=== PATIENT | male | born 1935 | race Caucasian/White ===

== ENCOUNTER 2018-02-17 12:58 | Inpatient (IN) | payer MEDICARE ==
[~2018-02-17] VITALS: Ht 180.3 cm; Wt 88.5 kg
[2018-02-17] MEDS ORDERED: ASPIRIN 325 MG TAB PO ONE (13:15)
[2018-02-17 13:37] LABS: BASOPHILS % 0.5 % (0.0-1.0); EOSINOPHILS # (AUTO) 0.3 (0.0-0.4); EOSINOPHILS % 7.8 % (0.0-6.0); HEMATOCRIT 38.5 % (38.2-49.6); HEMOGLOBIN 13.6 g/dL (14.0-18.0); LYMPHOCYTES # (AUTO) 1.1 (1.0-3.2); LYMPHOCYTES % 25.9 % (18.0-39.1); MEAN CORPUSCULAR HEMOGLOBIN 29.8 pg (28-32); MEAN CORPUSCULAR HGB CONC 35.3 g/dL (31-35); MEAN CORPUSCULAR VOLUME 84.2 fL (81-99); MONOCYTES # (AUTO) 0.4 (0.2-0.8); MONOCYTES % 8.6 % (4.4-11.3); NEUTROPHILS # (AUTO) 2.4 (2.1-6.9); PLATELET COUNT 167 x10e3/uL (140-360); RED BLOOD COUNT 4.57 x10e6/uL (4.3-5.7)
[2018-02-17 13:52] LABS: INR 1.03; PROTHROMBIN TIME 12.7 seconds (11.9-14.5)
[2018-02-17 13:53] LABS: PARTIAL THROMBOPLASTIN TIME 29.7 seconds (23.8-35.5)
[2018-02-17 14:01] LABS: ALBUMIN 4.3 g/dL (3.5-5.0); ALBUMIN/GLOBULIN RATIO 1.7 (0.8-2.0); CALCIUM 9.2 mg/dL (8.4-10.2); CREATININE, SERUM 1.17 mg/dL (0.72-1.25)
[2018-02-17 14:07] LABS: CREATINE KINASE MB 2.9 ng/mL (0-5.0)
--- NOTE | 2018-02-17 14:12 | Diagnostic Imaging Report ---
PROCEDURE:CHEST SINGLE (PORTABLE) TECHNIQUE:Portable AP chest INDICATION:Chest pain COMPARISON:None. FINDINGS: The lungs are clear and symmetrically inflated. No pleural effusions. Normal heart size, mediastinal contour, and pulmonary vasculature. Indwelling pacemaker over left hemithorax; leads intact. Intact skeleton. CONCLUSION: No acute abnormality. Dictated by: Carlos Farnsworth M.D. on 02/17/2018 at 14:14 Electronically approved by: Carlos Farnsworth M.D. on 02/17/2018 at 14:14
[2018-02-17] MEDS ORDERED: NITROGLYCERIN 0.4 MG SUBL SL PRN (15:15)
--- OUTSIDE RECORDS SUMMARY | 2018-02-17 15:20 | XMS REPORT | Clinical Summary ---
Author Author [facility] Address Unknown Phone Unavailable Care Team Providers Care Pipe Stem Sawyer Name Role Phone PCP Unavailable Allergies Not on File Current Medications Not on file Active Problems Not on file Encounters Date Type Specialty Care Team Description 04/03/2017 Telephone Transplant Paramjit Hernandez RN Kidney Transplant Donor Pre-evaluation after 02/16/2017 Social History Tobacco Use Types Packs/Day Years Used Date Never Assessed Sex Assigned at Date Recorded Not on file Last Filed Vital Signs Not on file Plan of Treatment Health Maintenance Due Date Last Done Comments INFLUENZA VACCINE 06/22/2018 Results Not on fileafter 02/16/2017
--- OUTSIDE RECORDS SUMMARY | 2018-02-17 15:20 | XMS REPORT ---
Author [facility] Address Unknown Phone Unavailable Care Team Providers Care Full Stack Engineer Name Role Phone RONN LOW Unavailable Unavailable Problems This patient has no known problems. Allergies, Adverse Reactions, Alerts This patient has no known allergies or adverse reactions. Medications This patient has no known medications. Results Test Description Test Time Test Comments Text Results Atomic Results Result Comments CHEST SINGLE (PORTABLE) [place] [address] Patient Name: DARBY MONTOYA MR #: [id number] : 1935 Age/Sex: 82/M Req #: [id number] Adm Physician: Ordered by: RONN LOW MD Report #: [id number] Location: ER Room/Bed: Procedure: [id number] DX/CHEST SINGLE (PORTABLE) Exam Date: 02/17/18 Exam Time: 1350 REPORT STATUS: Signed PROCEDURE: CHEST SINGLE (PORTABLE) TECHNIQUE: Portable AP chest INDICATION: Chest pain COMPARISON: None. FINDINGS: The lungs are clear and symmetrically inflated. No pleural effusions. Normal heart size, mediastinal contour, and pulmonary vasculature. Indwelling pacemaker over left hemithorax ; leads intact. Intact skeleton. CONCLUSION: No acute abnormality. Dictated by: Darby Farnsworth M.D. on 02/17/2018 at 14:14 Electronically approved by: Darby Farnsworth M.D. on 2017 at 14:14 Dictated By: DARBY FARNSWORTH MD 1414 Transcribed By: HARSHIL on 1414 COPY TO: RONN LOW MD
[2018-02-17 16:02] VITALS: BP 146/92
[2018-02-17 16:29] VITALS: BP 146/92
[2018-02-17] MEDS ORDERED: ASPIR 8181 MG PO (17:06)
[2018-02-17 19:58] VITALS: BP 139/83
[2018-02-17 21:58] LABS: CREATINE KINASE MB 2.3 ng/mL (0-5.0)
[2018-02-17] MEDS: METOPROLOL TARTRATE 25 MG TAB PO SCH (23:30)
[2018-02-18] VITALS (11 sets, daily range): BP systolic 101–154; BP diastolic 64–99
[2018-02-18 07:25] LABS: CREATINE KINASE MB 1.8 ng/mL (0-5.0)
[2018-02-18 07:42] LABS: CHOL/HDL RATIO 5.1 (3.9-4.7)
[2018-02-18] MEDS: ASPIRIN 325 MG TAB EC PO SCH (07:54)
[2018-02-18] MEDS: METOPROLOL TARTRATE 25 MG TAB PO SCH ×2 (07:54→20:16)
[2018-02-18] MEDS ORDERED: ATORVASTATIN 20 MG TAB PO SCH (09:00)
[2018-02-18] MEDS: SODIUM CHLORIDE 0.9% 1000ML 1,000 ML IV SCH ×3 (09:50→22:17)
--- NOTE | 2018-02-18 10:02 | Consultation ---
DATE OF CONSULTATION: February 18, 2018 CARDIOLOGY CONSULTATION REFERRING PHYSICIAN: Dr. Manny Ambrocio REASON FOR CONSULTATION: Chest pain. HISTORY OF PRESENT ILLNESS: Carlos is an 82-year-old man, past medical history of dyslipidemia and history of CAD, status post remote stents placed in an outside hospital, who presents with crescendo chest discomfort, worse with exertion and relieved by rest over the last week. Due to symptom worsening, patient decided to proceed to emergency department for further evaluation. His EKG showed sinus rhythm with LVH repolarization abnormality. He has also noted uncontrolled hypertension. On telemetry, he has remained in sinus rhythm as well as sinus bradycardia. Currently, he remains chest pain free. REVIEW OF SYSTEMS: Twelve-system review negative except for as noted above. ALLERGIES: NO KNOWN DRUG ALLERGIES. PHYSICAL EXAMINATION: VITAL SIGNS: Temperature 97.9, heart rate 58, respiratory rate 16, blood pressure 127/75, O2 sat 98%. GENERAL: In no acute distress, alert. NECK: No JVD. CHEST: Clear to auscultation. CARDIOVASCULAR: Regular rate and rhythm. Normal S1 and S2. No S3, no S4. No murmurs or rubs. ABDOMEN: Soft, nontender, nondistended. EXTREMITIES: No edema. CARDIOVASCULAR MEDICATIONS: 1. Metoprolol tartrate 12.5 mg q.12h. 2. Aspirin 325 mg daily. 3. Nitroglycerin p.r.n. STUDIES: White blood cells 4.2, hemoglobin 13.6, platelets 167,000. INR 1. Sodium 142, potassium 4, chloride 109, bicarbonate 26, BUN 17, creatinine 1.17, glucose 78, calcium 9.2. AST 14, ALT 12, alk phos 59. CK 120, then 96, then 80. CK-MB 2.9, then 2.3, then 1.8. Troponin I 0.074, then 0.073, then 0.061. BNP 75. Total protein 6.9, albumin 4.3, triglycerides 129, total cholesterol 225, LDL 155, LDL 44. Chest x-ray, no acute abnormality. ASSESSMENT: 1. Unstable angina. 2. Hypertension, initially uncontrolled, now improved. 3. Dyslipidemia. 4. Coronary artery disease with history of stents. RECOMMENDATIONS: Discussed indications, alternatives, risks, and benefits for coronary angiography and possible coronary intervention. Patient agrees to proceed. Will schedule for labor specialist later today. Continue aspirin and beta florence. Add statin therapy. Further recommendations to follow. Job#: [id number]
[2018-02-18] MEDS ORDERED: LIDOCAINE HCL 2% LOCAL 20 ML VIAL ONE (10:08)
[2018-02-18] MEDS ORDERED: IOPAMIDOL 370 MG/ML 200 ML INFUS..BTL INJ ONE (10:09)
[2018-02-18] MEDS ORDERED: HEPARIN SOD/SOD CHLORIDE 2,000 ML ONE (10:09)
[2018-02-18] MEDS ORDERED: SODIUM CHLORIDE 0.9% 1000ML 1,000 ML ONE (10:23)
[2018-02-18] MEDS ORDERED: FENTANYL CITRATE/PF 100MCG/2 ML INJ ONE (10:23)
[2018-02-18] MEDS ORDERED: MIDAZOLAM HCL 2 MG/2 ML VIAL ONE (10:23)
[2018-02-18] MEDS ORDERED: ATROPINE SULFATE 0.1 MG/ML 10ML SYR ONE (11:57)
--- NOTE | 2018-02-18 13:45 | Operative Report ---
DATE OF PROCEDURE: February 18, 2018 REFERRING PHYSICIAN: Manny Ambrocio MD PROCEDURE INDICATIONS: Unstable angina in patient with history of coronary artery disease and prior coronary stents. PROCEDURES PERFORMED 1. Left heart catheterization. 2. Selective coronary angiography times 2. 3. Left ventriculogram. 4. Right common femoral artery 6-Ethiopian Angio-Seal closure. PROCEDURE COMPLICATIONS: None. ESTIMATED BLOOD LOSS: Less than 15 mL. PROCEDURE SUMMARY: After consent was obtained, the patient was prepped and draped in a sterile fashion. The right femoral site was locally infiltrated with 2% lidocaine. Access was obtained with micropuncture, and a short 6-Ethiopian sheath was placed. All catheters were railed to the proximal ascending aorta over a J wire. A JL4, 6-Ethiopian catheter and a JR4, 6-Ethiopian catheter were used for selective engagement of the left main and the right coronary artery respectively. The JR4 was also used to cross the aortic valve for hemodynamic measurements and LV-gram. The following findings were observed: 1. LV pressure was 129/4 with end diastolic pressure of 20. 2. The aortic pressure was 121/63. 3. LV-gram reveals preserved left ventricular systolic function and normal regional wall motion and left ventricular ejection fraction of 50% to 55%. 4. Left main has an ostial 30% stenosis and mild to moderate calcifications. It gives an LAD and circumflex. 5. The LAD has a stent with 20% in-stent restenosis in the proximal portion. Small caliber septal perforators and diagonals arise from the LAD. The distal LAD has an additional area of 70% in-stent restenosis and is otherwise a good target for bypass. 6. The circumflex is a dominant vessel. It has ostial to proximal diffuse 60% to 70% stenosis and gives a high takeoff of the 1st obtuse marginal that is close in takeoff from the left main. This obtuse marginal has an area of diffuse ostial to proximal disease that is 95% stenosed with BEAU-2 flow distal to the stenosis. This is felt to be the culprit lesion. Additional 2nd obtuse marginal and left posterolateral branch and LPDA arise from the dominant circumflex. Prior to the LPDA and LPLV, there is 30% stenosis of the distal circumflex, which is focal. 7. The right coronary artery is nondominant, small in caliber, less than 1.5 mm in caliber overall, with 90% mid stenosis. CONCLUSION: Severe multivessel coronary artery disease with complex anatomy and bifurcation stenosis of a high takeoff of the 1st obtuse marginal coming off from a diffusely diseased ostial to proximal circumflex and severe in-stent restenosis of the LAD. RECOMMENDATIONS 1. Continue intensive medical therapy for CAD. 2. Surgical consultation for evaluation of aortocoronary bypass candidacy given complex anatomy. 3. IV fluids and bed rest. Job#: [id number]
[2018-02-18] MEDS: ATORVASTATIN 40 MG TAB PO SCH (20:20)
[2018-02-18] MEDS: ENOXAPARIN INJ 80 MG/0.8 ML SYR SC SCH (20:20)
[2018-02-19] VITALS (20 sets, daily range): BP systolic 100–171; BP diastolic 74–113
[2018-02-19] MEDS: ASPIRIN 325 MG TAB EC PO SCH (08:52)
[2018-02-19] MEDS: ENOXAPARIN INJ 80 MG/0.8 ML SYR SC SCH ×2 (08:53→19:45)
--- NOTE | 2018-02-19 09:55 | Progress Note ---
DATE: February 19, 2018 CARDIOLOGY PROGRESS NOTE SUBJECTIVE: Patient continues to endorse some chest pain occasionally across his chest, radiating to his left arm. Denies any shortness of breath, palpitations or cough. OBJECTIVE VITAL SIGNS: Temperature 98.4, pulse 68, respiratory rate 18. Blood pressure 129/92, oxygen saturation 100% on room air. CARDIOVASCULAR MEDICATIONS 1. Atorvastatin 40 mg p.o. at bedtime. 2. Lovenox 80 subcutaneous q.12. 3. Metoprolol 12.5 mg p.o. q.12. 4. Aspirin 325 p.o. daily. 5. Nitro-Dur 0.4 mg sublingual p.r.n. for chest pain. LABS: CK-MB 1.80, troponin 0.061. PHYSICAL EXAMINATION GENERAL: Alert and oriented times 3, resting comfortably in bed, does not appear to be in any acute distress. LUNGS: Clear to auscultation throughout. No wheezing. No rhonchi or crackles. CARDIOVASCULAR: Regular rate and rhythm. S1 and S2. S4 noted. NECK: Supple. No JVD noted. ABDOMEN: Soft, nontender. LOWER EXTREMITIES: There are 2+ pedal pulses. No edema. IMPRESSION 1. Unstable angina. 2. Hypertension. 3. Dyslipidemia. 4. Coronary artery disease with past history of multiple stents and coronary angiogram tomorrow with moderate to severe coronary artery disease. Will be needing coronary artery bypass graft. 5. Permanent pacemaker nonoperational with a battery. RECOMMENDATIONS: Electrophysiology has been consulted. Plan for pacemaker replacement today. The patient will be transferred downtown for coronary artery bypass graft after pacemaker has been replaced. Maintain on telemetry at all times. Left ventricular ejection fraction 50% to 55%. Continue the above-listed cardiac medications. Monitor the patient very closely. We will continue to follow. Dictated by May Christian NP. Job#: [id number]
[2018-02-19] MEDS: METOPROLOL TARTRATE 25 MG TAB PO SCH ×2 (10:54→17:11)
[2018-02-19] MEDS ORDERED: MIDAZOLAM HCL 2 MG/2 ML VIAL ONE ×2 (12:19→13:46)
[2018-02-19] MEDS ORDERED: SODIUM CHLORIDE 0.9% 1000ML 2,000 ML ONE (12:19)
[2018-02-19] MEDS ORDERED: LIDOCAINE HCL 2% LOCAL 20 ML VIAL ONE (12:19)
[2018-02-19] MEDS ORDERED: SODIUM CHLORIDE 0.9% 500ML 500 ML ONE (12:19)
[2018-02-19] MEDS ORDERED: FENTANYL CITRATE/PF 100MCG/2 ML INJ ONE (12:19)
[2018-02-19] MEDS ORDERED: BACITRACIN 50,000 UNIT VIAL ONE (12:20)
[2018-02-19] MEDS ORDERED: VANCOMYCIN 1GM/NS 250 ML 250 ML ONE (12:27)
[2018-02-19] MEDS: SODIUM CHLORIDE 0.9% 1000ML 1,000 ML IV SCH ×3 (18:46→22:00)
[2018-02-19] MEDS: ATORVASTATIN 40 MG TAB PO SCH (19:45)
--- NOTE | 2018-02-19 20:25 | Consultation ---
DATE OF CONSULTATION: February 19, 2018 REFERRING PHYSICIAN: Dr. Story. REASON FOR CONSULTATION: Pacemaker at end of service. HISTORY OF PRESENT ILLNESS: This is an 82-year-old gentleman with history of coronary artery disease, history of intermittent complete heart block, dual-chamber pacemaker in place that had reached end of service, unable to interrogate due to battery is completely . The patient presented with chest pain. He underwent heart catheterization and found to have significant coronary artery disease, awaiting transfer to another facility for coronary bypass surgery. No history of cardiac arrest. REVIEW OF SYSTEMS: CONSTITUTIONAL: Negative. CARDIOVASCULAR: Negative. RESPIRATORY: Negative. GASTROINTESTINAL: Negative. GENITOURINARY: Negative. MUSCULOSKELETAL: Negative. EYES: Negative. ENT: Negative. ALLERGY/IMMUNOLOGY: Negative. PSYCHIATRY: Negative. PAST MEDICAL HISTORY: Hypertension, coronary artery disease, heart block. PAST SURGICAL HISTORY: Pacemaker. FAMILY HISTORY: No premature coronary artery disease. SOCIAL HISTORY: No smoking, alcohol or illicit drugs. PHYSICAL EXAMINATION VITAL SIGNS: Blood pressure 140/60, pulse 60, respirations 20, O2 sat 98%. GENERAL: In no acute distress. HEENT: Moist mucous membranes. No lesions. NECK: No JVD. CARDIOVASCULAR: Regular rhythm. RESPIRATORY: Clear. ABDOMEN: Soft, nontender. MUSCULOSKELETAL: 2+ distal pulses. NEUROLOGICAL: No focal deficit. SKIN: No lesions. PSYCHIATRY: Normal thought process. EKG sinus rhythm, intraventricular conduction delay. IMPRESSION 1. Pacemaker at end of service, unable to interrogate. 2. History of dual-chamber pacemaker in place. 3. History of intermittent complete heart block. 4. Coronary artery disease, awaiting transfer for coronary bypass surgery. RECOMMENDATIONS: Discussed with the patient. At this time, the best course of action is to perform a generator replacement for the pacemaker. This was discussed in detail with benefits and risks. The patient voices understanding and wishes to proceed. Will plan for a pacemaker generator replacement. Thank you for letting us participate in Mr. Ha[facility]'s [facility] care. Job#: [id number]
--- NOTE | 2018-02-19 20:36 | Operative Report ---
DATE OF PROCEDURE: February 19, 2018 PREPROCEDURE DIAGNOSES 1. Pacemaker at end of service. 2. History of intermittent complete heart block. POSTPROCEDURE DIAGNOSES 1. Pacemaker at end of service. 2. History of intermittent complete heart block. ESTIMATED BLOOD LOSS: 5 mL. COMPLICATIONS: None. PROCEDURES PERFORMED 1. Dual-chamber pacemaker generator replacement. 2. Moderate sedation. Moderate conscious sedation was provided under my direct supervision by sedation-trained nurse. Sedation approximate time 20 minutes. Versed and Fentanyl. There were no complications. See sedation form for details. DESCRIPTION OF PROCEDURE: After informed consent was obtained, patient was brought to the electrophysiology laboratory in a fasting, nonsedated state. Area over his chest was prepped and draped in the usual sterile fashion. Moderate sedation and prophylactic antibiotic were given, 1% lidocaine was used as local anesthetic and a 3-cm skin incision was made in the left subclavicular area. Electrocautery, sharp and blunt dissection were used to reach the previous device and this device was freed out of the pocket. Leads were disconnected to the device and tested through the analyzer. The right ventricular lead was normal functioning. The right atrial lead had elevated thresholds with low impedance that appeared to be chronic. Since the patient is undergoing coronary bypass surgery, we decided to not perform any lead revision at this time, and continued chronic settings. So, the leads were connected to the new device and entire pacemaker system placed in the pocket. The pocket was irrigated with antibiotic solution using the pulse cleaning staff supervisor. The incision was closed using Vicryl and Dermabond. The patient tolerated the procedure well. Procedure was deemed complete. SUMMARY OF HARDWARE IMPLANTED: 1. The new pacemaker is [employer], model #[id number] 2. The chronic right atrial and right ventricular leads are [employer]. IMPRESSION: Successful dual-chamber pacemaker generator replacement, elevated threshold from the right atrial lead that appears to be chronic. PLAN: 1. Routine postop monitoring in telemetry bed. 2. Follow up in 2 weeks. Job#: [id number]
[2018-02-19] MEDS ORDERED: HYDROCODONE/APAP 5MG-325MG TAB PO PRN (21:30)
[2018-02-19] MEDS ORDERED: ZOLPIDEM TARTRATE 5 MG TAB PO PRN (21:30)
[2018-02-20] VITALS (7 sets, daily range): BP systolic 126–164; BP diastolic 84–94
[2018-02-20] MEDS: METOPROLOL TARTRATE 25 MG TAB PO SCH ×2 (08:32→20:56)
[2018-02-20] MEDS: ENOXAPARIN INJ 80 MG/0.8 ML SYR SC SCH ×2 (08:32→20:56)
[2018-02-20] MEDS: ASPIRIN 325 MG TAB EC PO SCH (08:32)
[2018-02-20] MEDS: SODIUM CHLORIDE 0.9% 1000ML 1,000 ML IV SCH (10:44)
[2018-02-20 13:16] LABS: BASOPHILS % 0.2 % (0.0-1.0); EOSINOPHILS # (AUTO) 0.4 (0.0-0.4); EOSINOPHILS % 8.9 % (0.0-6.0); HEMATOCRIT 40.2 % (38.2-49.6); HEMOGLOBIN 14.2 g/dL (14.0-18.0); LYMPHOCYTES # (AUTO) 1.1 (1.0-3.2); LYMPHOCYTES % 23.5 % (18.0-39.1); MEAN CORPUSCULAR HEMOGLOBIN 29.9 pg (28-32); MEAN CORPUSCULAR HGB CONC 35.3 g/dL (31-35); MEAN CORPUSCULAR VOLUME 84.6 fL (81-99); MONOCYTES # (AUTO) 0.4 (0.2-0.8); MONOCYTES % 7.8 % (4.4-11.3); NEUTROPHILS # (AUTO) 2.8 (2.1-6.9); NEUTROPHILS % 59.4 % (38.7-80.0); PLATELET COUNT 157 x10e3/uL (140-360); RED BLOOD COUNT 4.75 x10e6/uL (4.3-5.7); RED CELL DISTRIBUTION WIDTH 14.1 % (11.7-14.4)
--- NOTE | 2018-02-20 14:07 | Diagnostic Imaging Report ---
PROCEDURE:X-RAY CHEST, ONE VIEW COMPARISON:None. INDICATIONS:BLEEDING FROM NEW PACEMAKER YESTERDAY FINDINGS: Stable position of left subclavian approach implantable cardiac device with accounting for differences in patient positioning. Leads project over the expected regions of the right atrium and right ventricle. No pneumothorax. Lungs remain clear without consolidation, pleural effusion, or gross mass lesion. Stable cardiomediastinal contour with tortuosity of the thoracic aorta. No overt pulmonary edema. No acute osseous abnormality. CONCLUSION: No acute cardiopulmonary abnormality. Dictated by: Gagan Webster M.D. on 02/20/2018 at 14:10 Electronically approved by: Gagan Webster M.D. on 02/20/2018 at 14:10
--- NOTE | 2018-02-20 18:53 | Progress Note ---
DATE: CARDIOLOGY PROGRESS NOTE SUBJECTIVE: Patient continues to report occasional chest pain upon exertion. He is status post pacemaker yesterday. No any other complaints. OBJECTIVE: VITAL SIGNS: Temperature 97.1 pulse 60, respiratory rate 19. Blood pressure 158/92, oxygen saturation 97% on room air. CARDIOVASCULAR MEDICATIONS 1. Lovenox 80 mg q.12 subcutaneously. 2. Metoprolol 12.5 mg p.o. q.12. 3. Atorvastatin 40 p.o. nightly. 4. Aspirin 325 p.o. daily. 5. Nitroglycerin 0.4 mg sublingual p.r.n. 6. Minocycline 100 mg q.12 h p.o. LAB: WBC 4.63, hemoglobin 14.2, hematocrit 40.2, platelets 157,000. Chest x-ray with no acute cardiopulmonary abnormality. PHYSICAL EXAM GENERAL: Alert and oriented times 3 resting comfortably in bed does not appear to be in any acute distress. NECK: Supple. No JVD noted. CARDIOVASCULAR: Regular rate and rhythm. Normal S1, S2. S4 auscultated. LUNGS: Clear to auscultation throughout no wheezing. No rhonchi or crackles. ABDOMEN: Soft, nontender LOWER EXTREMITIES: 2+ pedal pulses. No edema. IMPRESSIONS 1. Unstable angina. 2. Hypertension. 3. Dyslipidemia. 4. Coronary artery disease with the past history of multiple stent. Recent coronary angiography with [id number] coronary artery disease. Will be needing coronary artery bypass graft. Awaiting transfer to [facility]. 5. Status post dual-chamber permanent pacemaker insertion due to end of life on the battery. 6. Bleeding surrounding recent pacemaker site after exertion. RECOMMENDATION: Patient to stay in bed for the next 24 hours. Dressing around pacemaker site reinforced and pressure applied. Repeat CBC shows stable hemoglobin. Chest x-ray negative. No evidence of acute bleed. Will continue to monitor site for now. Continue minocycline, status post pacemaker. We will follow up with patient, status post he has coronary artery bypass. Patient awaiting transfer. Maintain on telemetry at all times. Monitor very closely. Dictated By: May Christian NP Job#: [id number] CQ
[2018-02-20] MEDS: MINOCYCLINE HCL 50 MG CAP PO SCH (20:56)
[2018-02-20] MEDS: ATORVASTATIN 40 MG TAB PO SCH (20:56)
[2018-02-21 01:02] VITALS: BP 170/80
[2018-02-21 06:11] VITALS: BP 167/78
[2018-02-21 06:12] LABS: BASOPHILS % 0.2 % (0.0-1.0); EOSINOPHILS # (AUTO) 0.3 (0.0-0.4); EOSINOPHILS % 6.9 % (0.0-6.0); HEMATOCRIT 38.3 % (38.2-49.6); HEMOGLOBIN 13.5 g/dL (14.0-18.0); LYMPHOCYTES # (AUTO) 1.1 (1.0-3.2); LYMPHOCYTES % 21.8 % (18.0-39.1); MEAN CORPUSCULAR HEMOGLOBIN 29.5 pg (28-32); MEAN CORPUSCULAR HGB CONC 35.2 g/dL (31-35); MEAN CORPUSCULAR VOLUME 83.6 fL (81-99); MONOCYTES # (AUTO) 0.4 (0.2-0.8); MONOCYTES % 7.3 % (4.4-11.3); NEUTROPHILS # (AUTO) 3.1 (2.1-6.9); NEUTROPHILS % 63.6 % (38.7-80.0); PLATELET COUNT 133 x10e3/uL (140-360); RED BLOOD COUNT 4.58 x10e6/uL (4.3-5.7); RED CELL DISTRIBUTION WIDTH 14.1 % (11.7-14.4)
[2018-02-21 08:00] VITALS: BP 158/88
[2018-02-21] MEDS: METOPROLOL TARTRATE 25 MG TAB PO SCH (09:00)
[2018-02-21] MEDS: ASPIRIN 325 MG TAB EC PO SCH (09:00)
[2018-02-21] MEDS: MINOCYCLINE HCL 50 MG CAP PO SCH (09:00)
[2018-02-21] MEDS ORDERED: LIDOCAINE 1% W/EPINEPHRINE 20 ML VIAL INJ ONE (11:00)
[2018-02-21] MEDS ORDERED: LIDOCAINE 1% 5ML-MPF INJ ONE (11:15)
[2018-02-21] MEDS ORDERED: VANCOMYCIN 1GM/NS 250 ML 250 ML IV ONE (11:45)
--- NOTE | 2018-02-21 14:16 | Progress Note ---
0DATE: February 21, 2018 CARDIOLOGY PROGRESS NOTE SUBJECTIVE: No complaints today. He had, however, bleeding at the pacemaker site. ER physician called in and placed a superficial vascular stitch at the pacemaker pocket site to provide bleeding control. This was per report done in aseptic technique. The patient will receive a dose of vancomycin today. ChloraPrep and Tegaderm placed to site has been instructed to the nursing staff. No active bleeding at this point. OBJECTIVE VITAL SIGNS: Temperature 96.1, heart rate 62, respiratory rate 20, blood pressure 158/88. O2 sat 98% on room air. GENERAL: No acute distress. Alert. NECK: No JVD. CHEST: Clear to auscultation. CARDIOVASCULAR: Regular rate and rhythm. Normal S1 and S2. No S3, no S4. No murmurs or rubs. Pacemaker pocket site with no active bleeding. No evidence of significant hematoma on exam. No erythema or secretion. ABDOMEN: Soft, nontender. EXTREMITIES: No edema. CARDIOVASCULAR MEDICATIONS: Reviewed. 1. Lovenox 80 mg q.12 h. 2. Minocycline 100 mg q.12 h. 3. Atorvastatin 40 mg nightly. 4. Metoprolol tartrate 12.5 mg q.12 h. 5. Given 1 dose of vancomycin times 1 today. STUDIES: White blood cells 4.9, hemoglobin 13.5, platelets 133. LDL 155, HDL 44, total cholesterol 225. TELEMETRY: Paced rhythm. ASSESSMENT 1. Pacemaker at end of service with history of intermittent complete heart block, now status post dual-chamber [employer] pacemaker placement. 2. Unstable angina in the setting of multivessel coronary artery disease, awaiting aortocoronary bypass, to be transferred under Dr. Acevedo's care to [facility]. 3. Hypertension. 4. Dyslipidemia. 5. Now controlled bleeding at the pacemaker site. PLAN: Continue current cardiovascular medications. Discontinue Lovenox. Job#: [id number]
== END 2018-02-21 14:14 | disposition other institution (70) | DRG 259 ==
LOC: ER 12:58 → ERHOLD 15:17 → IMCU 15:25 → OBSVTOIN 02-18 16:09 → MED/SURG2 02-20 06:20
PROVIDERS: ADMIT Internal Medicine; ATTEND Internal Medicine
PROC: 4A023N7 Measurement of Cardiac Sampling and Pressure, Left Heart, Percutaneous Approach (ICD-10-PCS; principal; 2018-02-18)
PROC: B2111ZZ Fluoroscopy of Multiple Coronary Arteries using Low Osmolar Contrast (ICD-10-PCS; 2018-02-18)
PROC: B2151ZZ Fluoroscopy of Left Heart using Low Osmolar Contrast (ICD-10-PCS; 2018-02-18)
PROC: 0JH606Z Insertion of Pacemaker, Dual Chamber into Chest Subcutaneous Tissue and Fascia, Open Approach (ICD-10-PCS; 2018-02-19)
PROC: 0JPT0PZ Removal of Cardiac Rhythm Related Device from Trunk Subcutaneous Tissue and Fascia, Open Approach (ICD-10-PCS; 2018-02-19)
DX: I25.110 Atherosclerotic heart disease of native coronary artery with unstable angina pectoris (principal); I44.2 Atrioventricular block, complete; I97.618 Postprocedural hemorrhage of a circulatory system organ or structure following other circulatory system procedure; I10 Essential (primary) hypertension; D64.9 Anemia, unspecified; E78.5 Hyperlipidemia, unspecified; Z95.0 Presence of cardiac pacemaker; Z95.5 Presence of coronary angioplasty implant and graft; E78.00 Pure hypercholesterolemia, unspecified
CPT/HCPCS: 33228; 36140; 36415; 71045; 77002; 80053; 80061; 82550; 82553; 83880; 84484; 85025; 85610; 85730; 93005; 93306; 93458; 99284; G0378; J1650; J2001; J2250; J3370; J7030; J7040; Q9967